=== PATIENT | female | born 1940 | race Caucasian/White ===

== ENCOUNTER 2019-06-21 19:13 | Emergency (ER) | payer MEDICARE, BC ==
--- NOTE | 2019-06-21 20:29 | US ---
EXAMINATION TYPE: US venous doppler duplex LE LT DATE OF EXAM: 06/21/2019 8:08 PM COMPARISON: NONE CLINICAL HISTORY: Pain. Edema left leg. Lump mid/medial left calf. History of DVT SIDE PERFORMED: left TECHNIQUE: The lower extremity deep venous system is examined utilizing real time linear array sonog martina with graded compression, doppler sonography and color-flow sonography. VESSELS IMAGED: External Iliac Vein (EIV) Common Femoral Vein Deep Femoral Vein Greater Saphenous Vein * Femoral Vein Popliteal Vein Small Saphenous Vein * Proximal Calf Veins (* superficial vessels) Left Leg: Positive for DVT - chronic appearing - thready flow noted left popliteal vein. 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 Superficial thrombus not ed within palpable area left medial/mid calf IMPRESSION: Popliteal cyst. There is some chronic deep venous thrombosis in the popliteal vein. No co mplete occlusion.
--- NOTE | 2019-06-21 20:36 | ED ---
Extremity Problem HPI - General Chief complaint: Extremity Problem,Nontraumatic Stated complaint: Left Leg Pain/Lump Time Seen by Provider: 06/21/19 19:22 Source: patient, RN notes reviewed Mode of arrival: ambulatory Limitations: no limitations - History of Present Illness Initial comments: This a 78-year-old female presents emergency Department chief complaint left leg pain. Patient no said there is a lump behind her left knee. Patient states she has a history of DVT and she is concerned. Patient states that she is not having more swelling than usual. She does have an area of tenderness down her calf and her varicose veins. Patient reports no redness no trauma. Denies any chest pain or shortness of breath. - Related Data Allergies Allergy/AdvReac Type Severity Reaction Status Date / Time amoxicillin Allergy Unknown Verified 06/21/19 19:22 Review of Systems ROS Statement: Those systems with pertinent positive or pertinent negative responses have been documented in the HPI. ROS Other: All systems not noted in ROS Statement are negative. Past Medical History Past Medical History: Deep Vein Thrombosis (DVT), Thyroid Disorder History of Any Multi-Drug Resistant Organisms: None Reported Past Surgical History: No Surgical Hx Reported Past Psychological History: Depression Smoking Status: Never smoker Past Alcohol Use History: Rare Past Drug Use History: None Reported General Exam Limitations: no limitations General appearance: alert, in no apparent distress Head exam: Present: atraumatic, normocephalic, normal inspection Respiratory exam: Present: normal lung sounds bilaterally. Absent: respiratory distress, wheezes, rales, rhonchi, stridor Cardiovascular Exam: Present: regular rate, normal rhythm, normal heart sounds. Absent: systolic murmur, diastolic murmur, rubs, gallop, clicks Extremities exam: Present: other (Left leg there is a palpable cyst at the surface the popliteal region, pulse rate of bilaterally patient has no notable swelling compared to her right leg there is varicosities noted and some tenderness over the lower varicosities) Skin exam: Present: warm, dry, intact, normal color. Absent: rash Course Vital Signs 06/21/19 19:22 Temperature 97.6 F Pulse Rate 82 Respiratory 20 Rate Blood Pressure 170/86 O2 Sat by Pulse 98 Oximetry Medical Decision Making - Medical Decision Making 70-year-old female presented for left leg pain. Patient had an ultrasound of her lower extremity shows evidence of superficial thrombophlebitis, popliteal cyst and a chronic DVT. There is no acute DVT. Patient is advised to take daily aspirin will apply warm compresses and will follow-up with PCP. 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 Is patient prescribed a controlled substance at d/c from ED?: No Referrals: Art Flowers MD [Primary Care Provider] - 1-2 days Time of Disposition: 21:28
[2019-06-21 21:39] VITALS: BP 177/86; PULSE 81; RESP 18; TEMP 97.8
== END 2019-06-21 21:39 | disposition home or self-care (01) ==
LOC: EC 19:13
DX: M71.22 Synovial cyst of popliteal space [Baker], left knee (principal); I82.532 Chronic embolism and thrombosis of left popliteal vein; Z88.0 Allergy status to penicillin
CPT/HCPCS: 99283

== ENCOUNTER → 2021-09-02 | Outpatient (CLI) | payer MEDICARE, BC ==
[2021-09-02 12:45] LABS: HCT 41.9 % (34.0-46.0); HGB 15.2 gm/dL (11.4-16.0); MCH 32.6 pg (25.0-35.0); MCHC 36.3 g/dL (31.0-37.0); MCV 89.7 fL (80.0-100.0); Mean Platelet Volume 7.4; Platelet Count 223 k/uL (150-450); RBC 4.66 m/uL (3.80-5.40); RDW 13.3 % (11.5-15.5); WBC 10.2 k/uL (3.8-10.6)
[2021-09-02 12:55] LABS: INR 1.2 (<1.2); Partial Thromboplastin Time 26.8 sec (22.0-30.0)
[2021-09-02 12:57] LABS: Appearance,Urine Clear (Clear); Bacteria,Urine Many /hpf; Bilirubin,Urine Negative (Negative); Blood,Urine Small (Negative); Color,Urine Yellow; Glucose,Urine (UA) Negative (Negative); Ketones,Urine Negative (Negative); Leukocyte Esterase,Urine Trace (Negative); Mucus,Urine Rare /hpf; Nitrite,Urine Negative (Negative); PH, Urine 5.5 (5.0-8.0); Protein,Urine Negative (Negative); RBC,Urine 2 /hpf (0-5); Specific Gravity,Urine 1.013 (1.001-1.035); Squamous Epithelial Cell,Urine <1 /hpf (0-4); Urobilinogen,Urine <2.0 mg/dL (<2.0); WBC,Urine 7 /hpf (0-5)
[2021-09-02 12:59] LABS: Albumin 4.7 g/dL (3.5-5.0); Calcium 10.1 mg/dL (8.4-10.2); Potassium 4.5 mmol/L (3.5-5.1); Total Protein 7.7 g/dL (6.3-8.2)
== END | disposition home or self-care (01) ==
LOC: LABPAT 11:52
PROVIDERS: ATTEND Orthopaedic Surgery
DX: Z01.812 Encounter for preprocedural laboratory examination (principal)
CPT/HCPCS: 80053; 81001; 85027; 85610; 85730; 87070

== ENCOUNTER 2021-09-12 13:27 | Day surgery (SDC) | payer MEDICARE, BC ==
[2021-09-08 12:00] VITALS: BMI 31.1
[~2021-09-12 13:27] MED LIST: ACETAMINOPHEN TAB 500 MG TAB PO PRN; HYDROmorphone 0.5 MG/0.5 ML SYRINGE IVP PRN; MELOXICAM 7.5 MG TAB PO PRN; MIDAZOLAM 2 MG/2 ML VIAL IV PRN; ONDANSETRON 4 MG/2 ML VIAL IVP PRN; TRANEXAMIC ACID 1,000 MG in SODIUM CHLORIDE 0.9% 100 ML IVPB PRN
[2021-09-12] MEDS ORDERED: LIDOCAINE 1% (10MG/ML) FOR IV START INTRADERMA ONE (14:10)
[2021-09-12] MEDS: LACTATED RINGERS 1,000 ML IV SCH ×3 (14:10→23:58)
[2021-09-12 14:29] LABS: Prothrombin Time 10.8 sec (9.0-12.0)
[2021-09-12] MEDS ORDERED: fentaNYL (PF) 50 MCG/ML 2 ML AMP IVP ONE (14:56)
[2021-09-12] MEDS ORDERED: MIDAZOLAM 2 MG/2 ML VIAL IVP ONE (14:56)
[2021-09-12] MEDS ORDERED: LIDOCAINE 1% INJ 10MG/ML (20 ML MDV) ONE (15:12)
[2021-09-12] MEDS ORDERED: LABETALOL 5 MG/ML VIAL MDV ONE (15:12)
[2021-09-12] MEDS ORDERED: GLYCOPYRROLATE 0.2 MG/ML 2 ML VIAL ONE (15:12)
[2021-09-12] MEDS ORDERED: SODIUM CHLORIDE 0.9% (PF) 10 ML VIAL ONE (15:12)
[2021-09-12] MEDS ORDERED: ROPIVACAINE 5 MG/ML 30 ML VIAL ONE (15:12)
[2021-09-12] MEDS ORDERED: HYDROmorphone (PF) 1 MG/ML ONE (15:12)
[2021-09-12] MEDS ORDERED: PROPOFOL 10 MG/ML 20 ML VIAL IV ONE (15:12)
[2021-09-12] MEDS ORDERED: NEOSTIGMINE 1 MG/ML 10 ML VIAL ONE (15:12)
[2021-09-12] MEDS ORDERED: SODIUM CHLORIDE 0.9% 100 ML BAG ONE (15:12)
[2021-09-12] MEDS ORDERED: TRANEXAMIC ACID 1,000 MG/10 ML VIAL ONE (15:12)
[2021-09-12] MEDS ORDERED: ROCURONIUM 10 MG/ML (5 ML VIAL) IV ONE (15:12)
[2021-09-12] MEDS ORDERED: SUCCINYLCHOLINE CHLORIDE 100 MG/5 ML SYR IV ONE (15:12)
[2021-09-12] MEDS ORDERED: fentaNYL (PF) 50 MCG/ML 2 ML AMP ONE (15:12)
[2021-09-12] MEDS ORDERED: LACTATED RINGERS 1,000 ML IV ONE ×2 (15:46→18:24)
--- NOTE | 2021-09-12 15:55 | P.ANPRN ---
Procedure Note - Anesthesia - Nerve Block Performed Left Adductor Canal Infusion Time Out Performed: Yes (1455) Date of Procedure: 09/12/21 Procedure Start Time: 14:56 Procedure Stop Time: 14:51 Location of Patient: PreOp Indication: Acute Post-Operative Pain, Requested by Surgeon Specifically requested for management of pain by DrRoxana: Charles Pantoja Sedation Type: Sedate with meaningful contact maintained Preparation: Sterile Prep, Sterile Dressing Position: Supine Catheter Depth at Skin (cm): 7 Catheter: Indwelling Needle Types: Pajunk Needle Gauge: 21 Ultrasound used to visualize needle placement: Yes Ultrasound used to observe medication spread: Yes Injectate: 0.5% Ropivacaine (see comment for volume) (15cc + 5cc nacl pf) Blood Aspirated: No Pain Paresthesia on Injection Noted: No Resistance on Injection: Normal Image Stored and Saved: Yes Events: Uneventful and Well Tolerated
--- NOTE | 2021-09-12 15:56 | P.ANPRN ---
Procedure Note - Anesthesia - Nerve Block Performed Left iPack Single Time Out Performed: Yes (1455) Date of Procedure: 09/12/21 Procedure Start Time: 15:02 Procedure Stop Time: 15:07 Location of Patient: PreOp Indication: Acute Post-Operative Pain, Requested by Surgeon Specifically requested for management of pain by DrRoxana: Charles Pantoja Sedation Type: Sedate with meaningful contact maintained Preparation: Sterile Prep Position: Supine Catheter: None Needle Types: Pajunk Needle Gauge: 21 Ultrasound used to visualize needle placement: Yes Ultrasound used to observe medication spread: Yes Injectate: 0.5% Ropivacaine (see comment for volume) (15cc + 5cc nacl pf) Blood Aspirated: No Pain Paresthesia on Injection Noted: No Resistance on Injection: Normal Image Stored and Saved: Yes Events: Uneventful and Well Tolerated
--- NOTE | 2021-09-12 16:40 | P.OP ---
Date of Procedure: 09/12/21 Procedure(s) Performed: PREOPERATIVE DIAGNOSIS: Left knee severe osteoarthritis with genu varum POSTOPERATIVE DIAGNOSIS: Left knee severe osteoarthritis with genu varum OPERATION: Left knee cemented total replacement arthroplasty. ANESTHESIA: Spinal ESTIMATED BLOOD LOSS: 50 aml. HIGH SCHOOL ASSISTANT PRINCIPAL: Ann Marie Cardoza PA-C (assistance with: patient positioning, retraction, exposure, hemostasis, leg positioning, implantation, irrigation, closure, dressing) COMPLICATIONS: None apparent. COMPONENTS IMPLANTED: Persona system from [employer] INDICATIONS: Mrs. Araujo is an 80-year-old female with a history of left knee osteoarthritis. Conservative treatment has been tried and has been unsuccessful in controlling symptoms adequately. The operation of knee replacement has been discussed at length in the office, as well as potential risks and complications. These are inclusive of, but not limited to: bleeding, infection, scarring, discomfort, blood vessel and nerve damage, need for further surgery, failure to relieve symptoms, persistence, recurrence, or worsening of problems, loosening, dislocation, wear, blood clot, pulmonary embolism, , gait dysfunction, stiffness, and other risks as discussed in the office. The patient elects to proceed and the consent form has been signed. PROCEDURE: The patient was taken to the operating room and positioned on the operating room table in the supine position. Anesthesia was initiated. Care was taken to make sure that all pressure points were adequately padded. The operative lower extremity was prepped and draped in the usual aseptic fashion using ChloraPrep. Ioban drape was used for the case and the patient received intravenous antibiotics within one hour of the incision. A pneumotourniquet and leg mckenna were used for the case. The limb was exsanguinated with an Esmarch bandage and the tourniquet was inflated to 300 mmHg. Time-out was called confirming the patient's identity, side, procedure and administration of antibiotics and tranexamic acid, 1 g IV. The incision was then created midline directly over the knee, carried down through skin and into the subcutaneous tissues and down to fascia. Full thickness subcutaneous medial flap was developed. Medial parapatellar arthrotomy was performed and the interior of the knee was inspected. There was end-stage osteoarthritis of the knee with a mild to moderate genu varum type deformity. The fat pad was excised and proximal medial release on the tibia was completed using meticulous dissection and a curved osteotome. The anterior cruciate ligament was taken down. Note was made of significant attrition of the anterior and significant degenerative appearance of the posterior cruciate ligaments. The exposure was excellent. The knee was flexed 90 degrees and the patella was everted. A spot was chosen on the femur approximately 1 cm anterior to the posterior cruciate ligament insertion and an intramedullary hole was created within the femur. The intramedullary guide was then set to 5 degrees of valgus. The distal cutting block was attached and pinned into position. An appropriate amount of distal femoral resection was set. The oscillating saw was then used to make the distal femoral cut. This cut was confirmed to be flat with the flat end of an osteotome. The retractors were placed around the tibia and the tibial surface was addressed. The angle and depth of resection was adjusted using an extramedullary cutting guide. The guide had a built-in 3 degree posterior slope cut. Once the cutting guide was adjusted appropriately and in line with the axis of the tibia and confirmed to be in good position in relation to the second metatarsal and transmalleolar axis, the tibial cut was then created with protection of the posterior neurovascular structures and the collateral ligaments. The tibial cut surface was removed and sized. Femoral sizing was then accomplished using anterior referencing. Care was taken to analyze the posterior condyles for signs of deficiency or severe wear, and adjustments to the guide were made, as appropriate. 3 degree external rotation pins were placed. The cutting jig for the femur was applied to these pins. The planned cuts were further analyzed prior to performing them with the oscillating saw. No femoral notching was produced. Bone fragments were removed and the cut surfaces were finished, as necessary, with a reciprocating saw. Spacer block technique was then used to confirm that the flexion and extension gaps were equal. Soft tissue releases and adjustment of the tibial and/or femoral cuts were made, as necessary, until the gaps were equal. This included release of the posterior cruciate ligament, which was tight in this patient. The femur was then further finished for a posterior cruciate ligament substituting component. Patellar resurfacing was performed using a reamer. The size of the required patellar component was estimated and the patellar surface was then reamed down to a residual thickness which would recreate the pechanga thickness with the component. The exact placement of the patellar component was adjusted for position based on preoperative x-rays and intraoperative findings. The trial components were inserted. The tibial tray was allowed to self center and the patella was noted to track very well. The position of the tibial component was marked and the tibia was then finished for a stemmed tibial component. Cement was mixed on the back table and applied to the final components. Trial components were removed and the cut surfaces of the bone were pulse lavaged thoroughly and dried. Cement was then applied to the tibial surface and pressurized into the surface using finger pressurization technique. The tibial component was then applied and excess cement was removed after it was impacted securely and noted to be flush with the cut surface. In similar fashion, the cement was applied to the cut femoral surface, pressurized in using finger pressurization and the component was impacted into place. Excess cement was removed. The polyethylene spacer was then implanted and locked into position. The patellar component was then applied in similar technique and a patellar clamp was used to hold the patella in place as the cement hardened. Once the cement had fully hardened, the knee was reinspected. Any other cement extrusion was removed and final kinematic testing showed range of motion from 0 to 130 degrees with excellent stability, both medially and late rally and appropriate alignment of the leg. Patellar tracking was excellent. The knee was then thoroughly pulse lavaged with normal saline. The tourniquet was deflated and hemostasis was obtained with electrocautery and IV tranexamic acid, 1 g given prior to inflation of the tourniquet and another gram given at the time of closure. Closure was with #2 Ethibond in the fascia and supplemented with #2 Quill, 2-0 Vicryl suture was used for the subcutaneous tissues and 3-0 Quill for the skin. Dermabond/Steri-Strips were then applied. A lightly compressive dressing was applied using Webril and an Milton wrap. The patient was then transferred to stretcher and taken to the recovery room in stable condition. Sponge and needle counts were correct.
[2021-09-12] MEDS ORDERED: ONDANSETRON 4 MG/2 ML VIAL IVP PRN (17:11)
[2021-09-12] MEDS ORDERED: NA PHOS,M-B/NA PHOS,DI-BA 133 ML ENEMA RECTAL PRN (17:11)
[2021-09-12] MEDS ORDERED: HYDROmorphone 0.5 MG/0.5 ML SYRINGE IVP PRN ×2 (17:11)
[2021-09-12] MEDS ORDERED: HYDROmorphone 0.2 MG/1 ML SYRINGE IVP PRN (17:11)
[2021-09-12] MEDS ORDERED: MAGNESIUM HYDROXIDE 2,400 MG/10 ML CUP PO PRN (17:11)
[2021-09-12] MEDS ORDERED: NALOXONE 0.4 MG/ML 1 ML VIAL IV PRN (17:11)
[2021-09-12] MEDS ORDERED: bisacodyL 10 MG SUPP RECTAL PRN (17:11)
[2021-09-12] MEDS ORDERED: TEMAZEPAM 15 MG CAP PO PRN (17:11)
[2021-09-12] MEDS ORDERED: ROPIVACAINE 0.2%-NS ON-Q PUMP 1,090 MG, EMPTY PAIN BALL 1 EACH MISCELLANE PRN (17:16)
--- NOTE | 2021-09-12 17:46 | XR ---
EXAMINATION TYPE: XR knee limited LT DATE OF EXAM: 09/12/2021 COMPARISON: NONE HISTORY: Knee surgery TECHNIQUE: 2 views FINDINGS: There is left knee prosthesis. Components are in anatomic position. IMPRESSION: No complicating process seen.
[2021-09-12] MEDS ORDERED: hydrALAZINE HCL 20 MG/ML 1 ML VIAL ONE (17:48)
[2021-09-12] MEDS ORDERED: hydrALAZINE HCL 20 MG/ML 1 ML VIAL IVP ONE (17:52)
[2021-09-12] MEDS ORDERED: HYDROmorphone 0.5 MG/0.5 ML SYRINGE IVP ONE ×2 (17:56→19:14)
[2021-09-12] MEDS ORDERED: HYDROmorphone 0.5 MG/0.5 ML SYRINGE IVP STA (19:09)
[2021-09-12] MEDS ORDERED: SENNOSIDES-DOCUSATE SODIUM 1 EACH TAB PO SCH (21:00)
[2021-09-13] MEDS: HYDROcodone/APAP 5-325MG 1 EACH TAB PO PRN ×2 (02:17→08:06)
[2021-09-13 07:44] VITALS: BP 128/63; PULSE 89; RESP 18; TEMP 98.5
[2021-09-13] MEDS: LACTATED RINGERS 1,000 ML IV SCH (08:05)
--- NOTE | 2021-09-13 08:45 | P.DS ---
Providers Expected date of discharge: 09/13/21 Attending physician: Charles Pantoja Consults: 09/12/21 17:11 Consult Physician Routine Consulting Provider: Lola Hall Consult Reason/Comments: medical managment Do you want consulting provider notified?: Yes Primary care physician: Art Flowers - Discharge Diagnosis(es) (1) Osteoarthritis of left knee Current Visit: Yes Status: Acute (2) Status post total left knee replacement Current Visit: Yes Status: Acute Hospital Course: This is a 80-year-old female with known history of degenerative arthritis of the left knee. The patient presented for evaluation as an outpatient. After discussion and consideration patient elects to proceed with total knee arthroplasty. The patient is seen preoperatively by Dr. Pantoja and medically cleared for surgery by their primary care physician. Patient is admitted to [facility] on 09/12/2021 for total knee arthroplasty. The procedure is performed without complication or sequelae. The patient is doing well postoperatively. Labs and vital signs are stable on day of discharge. On day of discharge patient's knee incision is healing well. There is minimal erythema. There is no drainage noted at this time. There is minimal soft tissue swelling to the knee. Patient has full foot and ankle motion without difficulty or pain. Calf is soft and nontender to palpation. Neurovascular status to the left lower extremity is intact. Patient is discharged home in good condition. Patient has a pain contract with another physician who will manage postoperative pain. Please see med rec for accurate list of home medications. Plan - Discharge Summary Discharge Rx Participant: Yes New Discharge Prescriptions: New Gabapentin [Neurontin] 300 mg PO BID 5 Days #10 cap Sennosides-Docusate Sodium [Senokot-S] 1 tab PO BID #60 tablet Ondansetron Odt [Zofran Odt] 4 mg PO Q8HR PRN #14 tab PRN Reason: Nausea No Action Levothyroxine Sodium [Synthroid] 88 mcg PO Q48H Levothyroxine Sodium [Synthroid] 100 mcg PO Q48H Cholecalciferol [Vitamin D3 (25 Mcg = 1000 Iu)] 50 mcg PO DAILY Melatonin 10 mg PO HS Rivaroxaban [Xarelto] 20 mg PO QAM PARoxetine [Paxil] 20 mg PO HS HYDROcodone/APAP 5-325MG [[place] 5-325] 1 tab PO BID PRN PRN Reason: Pain Omeprazole 20 mg PO QAM Discharge Medication List Cholecalciferol [Vitamin D3 (25 Mcg = 1000 Iu)] 50 mcg PO DAILY 09/08/21 [History] HYDROcodone/APAP 5-325MG [[place] 5-325] 1 tab PO BID PRN 09/08/21 [History] Levothyroxine Sodium [Synthroid] 88 mcg PO Q48H 09/08/21 [History] Levothyroxine Sodium [Synthroid] 100 mcg PO Q48H 09/08/21 [History] Melatonin 10 mg PO HS 09/08/21 [History] Omeprazole 20 mg PO QAM 09/08/21 [History] PARoxetine [Paxil] 20 mg PO HS 09/08/21 [History] Rivaroxaban [Xarelto] 20 mg PO QAM 09/08/21 [History] Gabapentin [Neurontin] 300 mg PO BID 5 Days #10 cap 09/12/21 [Rx] Ondansetron Odt [Zofran Odt] 4 mg PO Q8HR PRN #14 tab 09/12/21 [Rx] Sennosides-Docusate Sodium [Senokot-S] 1 tab PO BID #60 tablet 09/12/21 [Rx] Follow up Appointment(s)/Referral(s): Ann Marie Cardoza, PAC [PHYSICIAN SPECIAL EDUCATION TEACHER] - 2 Weeks Activity/Diet/Wound Care/Special Instructions: Weight bearing as tolerated with walker Keep optifoam in place for 7 days May shower 48 hours post op Pain medicine per Dr. Flowers. Discharge Disposition: HOME WITH HOME HEALTH SERVICES
--- NOTE | 2021-09-13 08:45 | P.PN ---
Progress Note - Text The patient is status post[left ] adductor canal catheter placement. The catheter was placed for postoperative pain control, status post total [ left knee arthroplasty. Ropivacaine 0.2% is infusing at[8] mLs per hour. The patient has no complaints of[ left] lower extremity numbness or weakness. Patient's VAS score is[3-4 ]-10. Assessment: Patient's adductor canal catheter is in place and working appropriately. Plan: continue infusion and adjust it as needed.
[2021-09-13] MEDS ORDERED: RIVAROXABAN 10 MG TAB PO SCH (09:00)
--- NOTE | 2021-09-13 09:34 | P.CONS ---
History of Present Illness - Reason for Consult History of DVT - History of Present Illness Patient was an 80-year-old female admitted for the left Plastic sepsis and underwent surgery patient pain is well-controlled. I was consulted for management of her anti-correlation patient doesn't have any fever chills patient doesn't have any evidence of sepsis at this time her Dahl catheter is out. REVIEW OF SYSTEMS: CONSTITUTIONAL: No fever, no malaise, no fatigue. HEENT: No recent visual problems or hearing problems. Denied any sore throat. CARDIOVASCULAR: No chest pain, orthopnea, PND, no palpitations, no syncope. PULMONARY: No shortness of breath, no cough, no hemoptysis. GASTROINTESTINAL: No diarrhea, no nausea, no vomiting, no abdominal pain. NEUROLOGICAL: No headaches, no weakness, no numbness. HEMATOLOGICAL: Denies any bleeding or petechiae. GENITOURINARY: Denies any burning micturition, frequency, or urgency. MUSCULOSKELETAL/RHEUMATOLOGICAL: Denies any joint pain, swelling, or any muscle pain. ENDOCRINE: Denies any polyuria or polydipsia. The rest of the 14-point review of systems is negative. PHYSICAL EXAMINATION: GENERAL: The patient is alert and oriented x3, not in any acute distress. Well developed, well nourished. HEENT: Pupils are round and equally reacting to light. EOMI. No scleral icterus. No conjunctival pallor. Normocephalic, atraumatic. No pharyngeal erythema. No thyromegaly. CARDIOVASCULAR: S1 and S2 present. No murmurs, rubs, or gallops. PULMONARY: Chest is clear to auscultation, no wheezing or crackles. ABDOMEN: Soft, nontender, nondistended, normoactive bowel sounds. No palpable organomegaly. MUSCULOSKELETAL: Deferred to orthopedic surgery EXTREMITIES: No cyanosis, clubbing, or pedal edema. NEUROLOGICAL: Gross neurological examination did not reveal any focal deficits. SKIN: No rashes. Assessment and plan -The left upper plastic patient's x-ray underwent surgery patient had history of DVT in the past presently on anticoagulation which can be resumed and continued -Gastric esophageal reflux disease -Hyperlipidemia -Hypothyroidism For above-mentioned chronic medical problems patient will be resumed on appropriate home medications. DVT prophylaxis: Past Medical History Past Medical History: Deep Vein Thrombosis (DVT), GERD/Reflux, Hearing Disorder / Deafness, Hyperlipidemia, Osteoarthritis (OA), Thyroid Disorder Additional Past Medical History / Comment(s): Hx DVT 12 yrs ago. Kidney damage from Ibuprofen use, hasn't used in 2 yrs now. Varicose veins. History of Any Multi-Drug Resistant Organisms: None Reported Past Surgical History: Section, Cholecystectomy Additional Past Surgical History / Comment(s): Section X2. Past Anesthesia/Blood Transfusion Reactions: No Reported Reaction, Motion Sickness Past Psychological History: No Psychological Hx Reported Smoking Status: Never smoker Past Alcohol Use History: Occasional Past Drug Use History: None Reported - Past Family History Sister(s) Family Medical History: Cancer Additional Family Medical History / Comment(s): Ovarian cancer/Multiple Myeloma. Son(s) Family Medical History: Deep Vein Thrombosis (DVT) Medications and Allergies Home Medications Medication Instructions Recorded Confirmed Type Cholecalciferol [Vitamin D3 (25 50 mcg PO DAILY 09/08/21 09/08/21 History Mcg = 1000 Iu)] HYDROcodone/APAP 5-325MG [[place] 1 tab PO BID PRN 09/08/21 09/08/21 History 5-325] Levothyroxine Sodium [Synthroid] 88 mcg PO Q48H 09/08/21 09/08/21 History Levothyroxine Sodium [Synthroid] 100 mcg PO Q48H 09/08/21 09/08/21 History Melatonin 10 mg PO HS 09/08/21 09/08/21 History Omeprazole 20 mg PO QAM 09/08/21 09/08/21 History PARoxetine [Paxil] 20 mg PO HS 09/08/21 09/08/21 History Rivaroxaban [Xarelto] 20 mg PO QAM 09/08/21 09/12/21 History Gabapentin [Neurontin] 300 mg PO BID 5 Days #10 cap 09/12/21 Rx Ondansetron Odt [Zofran Odt] 4 mg PO Q8HR PRN #14 tab 09/12/21 Rx Sennosides-Docusate Sodium 1 tab PO BID #60 tablet 09/12/21 Rx [Senokot-S] Allergies Allergy/AdvReac Type Severity Reaction Status Date / Time amoxicillin Allergy Unknown Verified 09/08/21 11:37 Physical Exam Vitals: Vital Signs Temp Pulse Pulse Resp BP BP Pulse Ox 09/13/21 07:44 98.5 F 89 18 128/63 96 09/13/21 00:51 98.4 F 87 14 130/66 93 L 09/12/21 21:25 72 130/74 09/12/21 21:10 72 144/71 09/12/21 20:55 83 116/67 09/12/21 20:40 72 111/70 09/12/21 20:32 78 134/71 09/12/21 20:10 90 168/71 09/12/21 19:55 97.6 F 86 15 160/76 96 09/12/21 19:15 78 14 153/71 96 09/12/21 19:00 68 14 142/67 95 09/12/21 18:30 76 16 156/72 95 09/12/21 18:15 80 14 159/76 95 09/12/21 18:12 83 14 160/74 92 L 09/12/21 18:07 81 14 171/78 97 09/12/21 18:00 82 14 184/70 97 09/12/21 17:45 70 14 205/89 97 09/12/21 17:30 75 14 188/81 96 09/12/21 17:15 70 14 164/82 95 09/12/21 17:11 96.8 F L 67 16 160/79 95 09/12/21 15:14 81 16 154/70 97 09/12/21 14:02 98.9 F 85 18 177/85 95 Intake and Output 09/12/21 09/13/21 09/13/21 22:59 06:59 14:59 Intake Total 1350 Output Total 50 300 Balance 1300 -300 Intake: IV 1350 Output: Urine 300 Estimated Blood Loss 50 Other: Voiding Method Toilet Weight 77.5 kg
[2021-09-13 11:22] LABS: Basophils # (A) 0.07 X 10*3/uL (0.00-0.10); Basophils % (A) 0.6 %; Eosinophils # (A) 0.07 X 10*3/uL (0.04-0.35); Eosinophils % (A) 0.6 %; HCT 38.9 % (37.2-46.3); HGB 12.4 g/dL (12.0-15.0); Lymphocytes # (A) 1.43 X 10*3/uL (0.90-5.00); Lymphocytes % (A) 12.3 %; MCH 29.7 pg (27.0-32.0); MCHC 31.9 g/dL (32.0-37.0); MCV 93.1 fL (80.0-97.0); Mean Platelet Volume 10.3 fL (9.5-12.2); Monocytes # (A) 1.23 X 10*3/uL (0.20-1.00); Monocytes % (A) 10.6 %; Neutrophils # (A) 8.74 X 10*3/uL (1.80-7.70); Neutrophils % (A) 75.6 %; Platelet Count 207 X 10*3/uL (140-440); RBC 4.18 X 10*6/uL (4.10-5.20); RDW 13.5 % (11.5-14.5); WBC 11.58 X 10*3/uL (4.50-10.00)
== END 2021-09-13 11:20 | disposition home health service (06) ==
LOC: OR 13:27 → 4SSUR 19:29 → OR 09-13 11:20
PROVIDERS: ATTEND Orthopaedic Surgery
DX: M17.12 Unilateral primary osteoarthritis, left knee (principal); M21.162 Varus deformity, not elsewhere classified, left knee; E03.9 Hypothyroidism, unspecified; E78.5 Hyperlipidemia, unspecified; K21.9 Gastro-esophageal reflux disease without esophagitis; H91.90 Unspecified hearing loss, unspecified ear; Z97.3 Presence of spectacles and contact lenses; Z86.718 Personal history of other venous thrombosis and embolism; Z98.890 Other specified postprocedural states; Z82.49 Family history of ischemic heart disease and other diseases of the circulatory system; Z86.711 Personal history of pulmonary embolism; Z98.891 History of uterine scar from previous surgery; Z90.49 Acquired absence of other specified parts of digestive tract; Z79.01 Long term (current) use of anticoagulants; Z79.1 Long term (current) use of non-steroidal anti-inflammatories (NSAID); Z79.890 Hormone replacement therapy; Z79.891 Long term (current) use of opiate analgesic; Z79.899 Other long term (current) drug therapy; Z88.0 Allergy status to penicillin
CPT/HCPCS: 97161; 64999; 64448; 76942; 85025; 85610; 88300; 87635; 73560; 27447; C1713; C1776; J2250; J0360; J2710; J0690 ×2; J2405; J2001; J3010; J1170 ×3; J2795 ×2; J0330; J2704

== ENCOUNTER → 2023-03-12 | Outpatient (CLI) | payer BC, MEDICARE ==
--- NOTE | 2023-03-13 21:33 | MR ---
EXAMINATION TYPE: MR lumbar spine wo con DATE OF EXAM: 03/12/2023 COMPARISON: None HISTORY: 82-year-old female M48.061 Low back pain and pain down both legs TECHNIQUE: Multiplanar, multisequence images of the lumbar spine were acquired without IV contrast. FINDINGS: Moderate multilevel degenerative disc disease with desiccated, narrowed, and bulging discs throughout . Modic type III sclerotic endplate changes present particularly at T12-L1. Some edematous Modic type I endplate changes present towards the left posteriorly at L4-L5. Multilevel hypertrophic facet arthropathy. Additional scattered ligamentum flavum thickening and prom inent dorsal epidural fat. Conus medullaris is normal. No prevertebral or paravertebral soft tissues abnormality is seen. No suspicious bone marrow replacement. Vertebral body heights are preserved and alignment is maintained. Bulging disc contribute to mild narrowing of the spinal canal at multiple levels with ventral impress ion on the thecal sac. More moderate focal spinal canal stenosis at L2-L3 and mild to moderate at L4- L5. On the right, changes associated moderate neuroforaminal stenoses throughout from T12 through S1 leve ls. On the left, there is moderate neuroforaminal stenosis L3-L4 and L4-L5. Mild at additional levels. IMPRESSION: 1. Moderate multilevel disc/endplate degenerative change as well as facet arthropathy. Some associate d edematous Modic type I endplate change towards the left at L4-L5. 2. Additional hypertrophic facet arthropathy with ligamentum flavum thickening and prominent dorsal e pidural fat. 3. Changes result in overall moderate focal spinal canal stenosis at L2-L3, mild to moderate at L4-L5 , and mild elsewhere throughout the upper to mid lumbar spine. No high-grade canal compromise. 4. There is moderate neuroforaminal stenoses as outlined above, extensively on the right. Also on the left at L3-L4 and L4-L5.
== END | disposition home or self-care (01) ==
LOC: RADMRIMAIN 14:01
PROVIDERS: ATTEND Psychiatry & Neurology Neurology
DX: M48.061 Spinal stenosis, lumbar region without neurogenic claudication (principal); M47.816 Spondylosis without myelopathy or radiculopathy, lumbar region; M99.73 Connective tissue and disc stenosis of intervertebral foramina of lumbar region
CPT/HCPCS: 72148